=== PATIENT | female | born 1950 | race Caucasian/White ===

== ENCOUNTER 2016-10-22 04:23 | Emergency (ER) | payer OTHER ==
[~2016-10-22] VITALS: Ht 157.5 cm; Wt 63.0 kg
[2016-10-22 04:30] VITALS: Ht 157.5 cm; Wt 63.0 kg
[2016-10-22] MEDS ORDERED: KETOROLAC 30 MG INJ IV STA (06:41)
[2016-10-22] MEDS ORDERED: CLINDAMYCIN 900 MG/D5W (PMX) 50 ML IVPB SCH (07:00)
[2016-10-22] MEDS ORDERED: DEXAMETHASONE 10 MG/ML 1 ML INJ IV ONE (07:00)
[2016-10-22 08:35] VITALS: BP 119/72
[2016-10-22] MEDS ORDERED: PRED20TA PO (08:49)
[2016-10-22] MEDS ORDERED: IBUP800T25 PO (08:49)
[2016-10-22] MEDS ORDERED: HYDR-902 PO (08:49)
--- NOTE | 2016-10-22 08:53 | ERD ---
ER Documentation Chief Complaint Date/Time DATE: 10/22/16 TIME: 08:[address], with a tonsilitis sent by her specialist HPI This is a 65-year-old who is sent by her ENT for evaluation for sore throat. The patient states she has had several month history of off-and-on pharyngitis which is being worked up by her ENT. She says there is a possibility there is some type of mold exposure. The patient states that she has had a sore throat since last week and saw her ENT doctor and he put her on clindamycin. She said over the weekend her sore throat is gotten worse with more throat swelling. She says she is not having a fever no headache no nausea vomiting or difficulty breathing or swallowing secretions. She also says there is no neck swelling. She says that her ENT told her to go to the ER for evaluation ROS All systems reviewed and are negative except as per history of present illness. Medications Home Meds Active Scripts Prednisone* (Prednisone*) 20 Mg Tab, 60 MG PO DAILY for 5 Days, TAB Prov:JOHNNIE SHOEMAKER DO 10/22/16 Hydrocodone/Acetaminophen ([place] 10-325 Tablet) 1 Each Tablet, 1 TAB PO Q6H Y for PAIN, #15 TAB Prov:JOHNNIE SHOEMAKER DO 10/22/16 Ibuprofen* (Motrin*) 800 Mg Tab, 800 MG PO Q6H Y for PAIN AND OR ELEVATED TEMP, #30 TAB Prov:JOHNNIE SHOEMAKER DO 10/22/16 PMhx/Soc History of Surgery: Yes (hysterectomy, tubal ) Hx Alcohol Use: No Hx Substance Use: No Hx Tobacco Use: No Smoking Status: Never smoker FmHx Family History: No coronary disease Physical Exam Vitals Vital Signs Date Time Temp Pulse Resp B/P Pulse Ox O2 Delivery O2 Flow Rate FiO2 10/22/16 08:35 98 18 119/72 98 10/22/16 06:30 103 18 98 Room Air 10/22/16 04:30 98.4 84 18 168/100 98 Physical Exam Const: Well-developed, well-nourished Head: Atraumatic, normocephalic Eyes: Normal Conjunctiva, PERRLA, EOMI, normal sclera, no nystagmus ENT: Normal External Ears, Nose and Mouth, moist mucus membranes, both tonsils are swollen grade +3 there is no exudate there is very mild erythema no airway compromise. Neck: Full range of motion. No meningismus, no lymphadenopathy. Resp: Clear to auscultation bilaterally, no wheezing, rhonchi, rales Cardio: Regular rate and rhythm, no murmurs, S1 S2 present Abd: Soft, non tender x 4, non distended. Normal bowel sounds, no guarding or rebound, no pulsitile abdominal masses or bruits Skin: No petechiae or rashes, no ecchymosis , no maculopapular rash Back: No midline or flank tenderness Ext: No cyanosis, or edema, FROM x 4, normal inspection, neurovascularly intact x 4 Neur: Awake and alert, STR 5/5 x 4, sensation intact x 4, no focal findings, cerebellum intact Psych: Normal Mood and Affect Results 24 hrs Current Medications Medications (Trade) Dose Ordered Sig/Rex Route PRN Reason Start Time Stop Time Status Last Admin Dose Admin Dexamethasone 8 mg 8 mg ONCE ONCE IV 10/22/16 07:00 10/22/16 07:01 DC 10/22/16 07:10 Clindamycin HCl/ Dextrose (Cleocin 900 Mg/ D5W (Pmx)) 50 ml @ 50 mls/hr ONCE IVPB 10/22/16 07:00 10/22/16 07:59 DC 10/22/16 07:32 Ketorolac Tromethamine (Toradol) 30 mg ONCE STAT IV 10/22/16 06:41 10/22/16 06:45 DC 10/22/16 07:10 Procedures/MDM Patient was given intravenous clindamycin, Solu-Medrol and Toradol. After some time the patient states she feels significantly better. Patient has a prescription for clindamycin already provide her with pain control and swelling support. She will follow-up with her doctor Departure Diagnosis: Primary Impression: Pharyngitis Pharyngitis/tonsillitis etiology: unspecified etiology Qualified Code: J02.9 - Pharyngitis, unspecified etiology Condition: Stable Patient Instructions: Pharyngitis, Viral JOHNNIE SHOEMAKER DO Oct 22, 2016 08:52
[2016-10-22 09:00] VITALS: PULSE 62; RESP 18
[2016-10-22] MEDS ORDERED: CLIN-73 PO (19:05)
[2016-10-22] MEDS ORDERED: NAPR-688 PO (19:11)
== END 2016-10-22 09:01 | disposition home or self-care (01) ==
LOC: E/R 04:23
DX: J02.9 Acute pharyngitis, unspecified (principal); R40.2142 Coma scale, eyes open, spontaneous, at arrival to emergency department; R40.2252 Coma scale, best verbal response, oriented, at arrival to emergency department; R40.2362 Coma scale, best motor response, obeys commands, at arrival to emergency department
CPT/HCPCS: J1100; J1885; 96374; 96375

== ENCOUNTER 2016-10-22 16:07 | Emergency (ER) | payer OTHER ==
[~2016-10-22] VITALS: Wt 65.0 kg
[~2016-10-22 16:07] MED LIST: HYDR-902 PO; IBUP800T25 PO; PRED20TA PO
[2016-10-22 17:24] LABS: ADD SCAN DIFF NO
[2016-10-22 17:26] LABS: BASOPHILS % 0.5 % (0.0-2.0); HEMATOCRIT 40.3 % (37.0-47.0); HEMOGLOBIN 12.9 g/dl (12.0-16.0); LYMPHOCYTES # 0.9 10^3/ul (0.8-2.9); LYMPHOCYTES % 10.2 % (15.0-51.0); MEAN CORPUSCULAR HEMOGLOBIN 29.1 pg (29.0-33.0); MEAN PLATELET VOLUME 10.3 fl (7.4-10.4); MONOCYTE # 0.4 10^3/ul (0.3-0.9); MONOCYTES % 4.2 % (0.0-11.0); NEUTROPHIL # 7.1 10^3/ul (1.6-7.5); NEUTROPHILS % 80.5 % (39.0-77.0); PLATELET COUNT 377 10^3/UL (140-415); RED BLOOD COUNT 4.43 10^6/ul (4.20-5.40); RED CELL DISTRIBUTION WIDTH 13.1 % (11.5-14.5); WHITE BLOOD COUNT 8.8 10^3/ul (4.8-10.8)
[2016-10-22 17:43] LABS: ALBUMIN 4.3 g/dl (3.3-4.9); ALBUMIN/GLOBULIN RATIO 1.19; BILIRUBIN,INDIRECT 0.1 mg/dl (0-1.1); BILIRUBIN,TOTAL 0.1 mg/dl (0.2-1.3); CALCIUM 10.2 mg/dl (8.4-10.2); CREATININE 0.81 mg/dl (0.44-1.00); POTASSIUM 4.7 mmol/L (3.5-5.1); TOTAL PROTEIN 7.9 g/dl (6.1-8.1)
[2016-10-22] MEDS ORDERED: SOD CHLORIDE 0.9% 100 ML ONE (18:04)
[2016-10-22] MEDS ORDERED: IOHEXOL 300MG/ML 150 ML BTL ONE (18:04)
--- NOTE | 2016-10-22 18:38 | RADRPT ---
PROCEDURE: CT Neck with contrast CLINICAL INDICATION: Abscess. TECHNIQUE: CT of the neck was performed following the intravenous administration of 80 cc of Omnip aque-300 IV Contrast. Axial images were obtained through the neck with multiplanar reformatted image s generated from the axial acquired data. The administered radiation dose was CTDI vol = 8.56 mGy, DLP = 192.02 mGy-cm. One or more of the following dose reduction techniques were used: Automated exp osure control, Adjustment of the mA and/or kV according to patient size, or Use of iterative reconst ruction technique. COMPARISON: There are no similar studies submitted for comparison. FINDINGS: SKULL: The visualized portions of the brain are grossly unremarkable.The visualized orbits are unrem arkable. There are moderate bilateral maxillary sinus mucous retention cyst/polyps. The bilateral m astoid air cells are within normal limits. PAROTID GLANDS: Unremarkable. SUBMANDIBULAR GLANDS: Unremarkable. THYROID GLAND: The thyroid is heterogeneous with a few sub centimeter nodules. VASCULATURE: The bilateral vascular structures are patent. LYMPH NODES: There are mildly enlarged bilateral lymph nodes which are borderline in size with a lef t level IIB lymph node measuring 1.5 x 1.0 cm. Multiple small lymph nodes are identified in the nec k in levels I-V which are not pathologically enlarged or necrotic. The lymph nodes are relatively bi lateral and symmetric in distribution. AERODIGESTIVE TRACT: There is streak artifact from dental hardware limiting evaluation of the oral c avity.There is right greater left enlargement of the bilateral palatine tonsils. There are sub-cent imeter areas of nonenhancement in the left palatine tonsil (image 29 series 3) which may represent d eveloping abscesses. There is mild prominence of the bilateral lingual tonsils. There is no prever tebral abscess. No primary aerodigestive tract lesion is identified. THORAX: There is an azygos lobe which is a normal variant. OSSEOUS STRUCTURES: No destructive lytic or blastic osseous lesion is identified.There is reversal o f the cervical lordosis suggesting muscle spasm and/or degenerative changes. There are mild degenera tive changes within the cervical spine. IMPRESSION: 1. Right greater left enlargement of the bilateral palatine tonsils which may relate to inflammator y phlegmon/tonsillitis. There are sub-centimeter areas of nonenhancement in the left palatine tonsi l which may represent small developing abscesses which are not excluded. 2. No prevertebral abscess. 3. Mildly prominent lymph nodes which are borderline enlarged by imaging criteria and are nonspecif ic and may be reactive. 4. Heterogeneous thyroid with a few sub centimeter nodules. Further findings as detailed above. RPTAT: PP .Alfred Frost MD, MD Date Time Electronically viewed and signed by .Alfred Frost MD, on 10/22/2016 18:38 .F/
[2016-10-22] MEDS ORDERED: CLINDAMYCIN 600 MG/D5W (PMX) 50 ML IVPB STA (18:55)
[2016-10-22] MEDS ORDERED: KETOROLAC 30 MG INJ IV STA (19:00)
[2016-10-22] MEDS ORDERED: CLINDAMYCIN 900 MG/D5W (PMX) 50 ML IVPB STA (19:04)
[2016-10-22] MEDS ORDERED: CLIN-73 PO (19:05)
[2016-10-22] MEDS ORDERED: NAPR-688 PO (19:11)
[2016-10-22 19:59] VITALS: BP 145/93; PULSE 73; RESP 15; TEMP 98.3
--- NOTE | 2016-10-24 20:05 | ERD ---
ER Documentation Chief Complaint Date/Time DATE: 10/24/16 TIME: 19:55 Chief Complaint THROAT PAIN AND SWELLING. WAS SEEN FOR SAME TODAY. MD NEEDS CT SCAN HPI 65 year old female presenting to the emergency department complaining of a moderate severity sore throat increased with swallowing. Patient states that she was seen earlier this morning and discharged with prednisone and naproxen. Patient states that when she left this facility, she called her PCP in which they suggested for her to come back to the ER and receive a CT of the neck because her throat cultures came back positive for GAS. She denies fevers. She states she has not taken any medications yet ROS All systems reviewed and are negative except as per history of present illness. Medications Home Meds Active Scripts Naproxen* (Naproxen*) 500 Mg Tablet, 500 MG PO BID, #30 TAB Prov:JO ANN RAMOS PA-C 10/22/16 Clindamycin Hcl* (Clindamycin Hcl*) 300 Mg Capsule, 300 MG PO TID for 10 Days, CAP Prov:JO ANN RAMOS PA-C 10/22/16 Prednisone* (Prednisone*) 20 Mg Tab, 60 MG PO DAILY for 5 Days, TAB Prov:LEKKOSMALLIKASTOLOS A. DO 10/22/16 Hydrocodone/Acetaminophen ([place] 10-325 Tablet) 1 Each Tablet, 1 TAB PO Q6H Y for PAIN, #15 TAB Prov:LEKKOSMALLIKASTOLOS A. DO 10/22/16 Ibuprofen* (Motrin*) 800 Mg Tab, 800 MG PO Q6H Y for PAIN AND OR ELEVATED TEMP, #30 TAB Prov:LERASHIDOSMALLIKASTOLOS A. DO 10/22/16 Allergies Allergies: Coded Allergies: ampicillin (Verified Allergy, Intermediate, 10/22/16) PMhx/Soc History of Surgery: Yes (hysterectomy, tubal ) Hx Alcohol Use: No Hx Substance Use: No Hx Tobacco Use: No Smoking Status: Never smoker Physical Exam Vitals Vital Signs Date Time Temp Pulse Resp B/P Pulse Ox O2 Delivery O2 Flow Rate FiO2 10/22/16 19:59 98.3 73 15 145/93 97 Room Air 10/22/16 16:11 98.8 85 20 160/81 98 Physical Exam GENERAL: well-developed/well-nourished, in no apparent distress, non-toxic appearing HEAD: NC/AT, no swelling noted in frontal or maxillary areas EARS: bilateral tympanic membrane is intact without erythema or effusion NARES: nares patent THROAT: oropharynx mild erythematous without exudates, tonsil enlargement EYES: Conjunctiva normal NECK: Supple, no lymphadenopathy PULM: CTA bilaterally, no rales, rhonchi, or wheezing heard CV: Normal S1S2, RRR, good capillary refill GI: Soft, non-distended, normal bowel sounds, non-tender BACK: No midline tenderness, no masses EXT No clubbing, cyanosis, or edema NEURO: Alert and Orientated SKIN: Intact, normal turgor PSYCH: Normal mood and mentation Result Diagram: 10/22/16169910/22/161699 Results 24 hrs Laboratory Tests Test 10/22/16 17:00 White Blood Count 8.810^3/ul Red Blood Count 4.4310^6/ul Hemoglobin 12.9g/dl Hematocrit 40.3% Mean Corpuscular Volume 91.0fl Mean Corpuscular Hemoglobin 29.1pg Mean Corpuscular Hemoglobin Concent 32.0g/dl Red Cell Distribution Width 13.1% Platelet Count 50624^3/UL Mean Platelet Volume 10.3fl Neutrophils % 80.5% Lymphocytes % 10.2% Monocytes % 4.2% Eosinophils % 0.0% Basophils % 0.5% Nucleated Red Blood Cells % 0.0/100WBC Neutrophils # 7.110^3/ul Lymphocytes # 0.910^3/ul Monocytes # 0.410^3/ul Eosinophils # 0.010^3/ul Basophils # 0.010^3/ul Nucleated Red Blood Cells # 0.010^3/ul Sodium Level 146mmol/L Potassium Level 4.7mmol/L Chloride Level 99mmol/L Carbon Dioxide Level 31mmol/L Anion Gap 21 Blood Urea Nitrogen 33mg/dl Creatinine 0.81mg/dl Glucose Level 136mg/dl Calcium Level 10.2mg/dl Total Bilirubin 0.1mg/dl Direct Bilirubin 0.00mg/dl Indirect Bilirubin 0.1mg/dl Aspartate Amino Transf (AST/SGOT) 24IU/L Alanine Aminotransferase (ALT/SGPT) 46IU/L Alkaline Phosphatase 66IU/L Total Protein 7.9g/dl Albumin 4.3g/dl Globulin 3.60g/dl Albumin/Globulin Ratio 1.19 Lipase 24U/L Current Medications Medications (Trade) Dose Ordered Sig/Rex Route PRN Reason Start Time Stop Time Status Last Admin Dose Admin IV Flush 10 ml 10 ml STK-MED ONCE .ROUTE 10/22/16 18:04 10/22/16 18:05 DC 10/22/16 18:22 Sodium Chloride (NS) 100 ml @ ud STK-MED ONCE .ROUTE 10/22/16 18:04 10/22/16 18:05 DC 10/22/16 18:23 Iohexol 150 ml 150 ml STK-MED ONCE .ROUTE 10/22/16 18:04 10/22/16 18:05 DC 10/22/16 18:23 Clindamycin HCl/ Dextrose (Cleocin 600 Mg/ D5W (Pmx)) 50 ml @ 50 mls/hr ONCE STAT IVPB 10/22/16 18:55 10/22/16 19:04 DC Ketorolac Tromethamine 30 mg 30 mg ONCE STAT IV 10/22/16 19:00 10/22/16 19:01 DC 10/22/16 19:26 Clindamycin HCl/ Dextrose (Cleocin 900 Mg/ D5W (Pmx)) 50 ml @ 50 mls/hr ONCE STAT IVPB 10/22/16 19:04 10/22/16 20:03 DC 10/22/16 19:26 Procedures/MDM 65 year old female presenting to the emergency department complaining of a moderate severity sore throat increased with swallowing. Patient was evaluated and discharged earlier with prednisone. Patient states that when she left this facility, she called her PCP in which they suggested for her to come back to the ER and receive a CT of the neck because her throat cultures came back positive for GAS. She states she has not taken any medications yet. IV access established, Lab work was drawn. CBC did not show any evidence of leukocytosis or anemia. CMP did not show any evidence of renal, liver, or electrolyte abnormalities. Lipase was normal. CT neck with contrast was done and showed tonsillitis with sub-centimeter areas of nonenhancement in the left palatine tonsil which may represent small developing abscesses which are not excluded. I consulted my supervising physician Dr. Mane and the ENT specialist Dr. Bateman in which they state that she is stable to be discharged home with antibiotics. Patient was given 900mg Clindamycin and Toradol through IV. She was stable to be discharged home with clindamycin and strict precautions to return to the ER for any worsening symptoms. She understands and agrees with plan. CT neck: 1. Right greater left enlargement of the bilateral palatine tonsils which may relate to inflammatory phlegmon/tonsillitis. There are sub-centimeter areas of nonenhancement in the left palatine tonsil which may represent small developing abscesses which are not excluded. 2. No prevertebral abscess. 3. Mildly prominent lymph nodes which are borderline enlarged by imaging criteria and are nonspecific and may be reactive. 4. Heterogeneous thyroid with a few sub centimeter nodules. Departure Diagnosis: Primary Impression: Strep throat Condition: Stable Patient Instructions: Pharyngitis, Strep (Presumed) Additional Instructions: FOLLOW UP WITH YOUR PRIMARY CARE PHYSICIAN TOMORROW.Return to this facility if you are not improving as expected. Take all medicines as directed. Return to this facility if you are not improving as expected. JO ANN RAMOS PA-C Oct 24, 2016 20:04
== END 2016-10-22 19:59 | disposition home or self-care (01) ==
LOC: FTE 16:07
DX: J02.0 Streptococcal pharyngitis (principal)
CPT/HCPCS: 70491; 80053; 83690; 85025; 96374; 96375; 99285; J1885; Q9967

== ENCOUNTER 2016-10-24 02:53 | Emergency (ER) | payer OTHER ==
[~2016-10-24] VITALS: Ht 162.6 cm; Wt 65.0 kg
[~2016-10-24 02:53] MED LIST changes: +CLIN-73 PO; +NAPR-688 PO
[2016-10-24 02:56] VITALS: Ht 162.6 cm; Wt 65.0 kg
--- NOTE | 2016-10-24 04:07 | ERD ---
ER Documentation Chief Complaint Date/Time DATE: 10/24/16 TIME: 04:05 Chief Complaint sore throat x 4 days, seen yesterday here, on antibiotics day#2 HPI 65-year-old female presents here in emergency department for complaints of sore throat for 4 days, patient was seen here in emergency department 2 times, had been diagnosed to have acute bacterial pharyngitis, was given antibiotics, has been only taking the medications for the last 48 hours, patient states that tonight, she continues sore throat pain, seems to having throat discomfort and shortness of breath, she is scared that she may have closed her throat. Patient stopped taking prednisone but is continuously taking clindamycin and ibuprofen, patient has not seen ENT specialist yet. Patient does not have any fever or chills ROS All systems reviewed and are negative except as per history of present illness. Medications Home Meds Active Scripts Naproxen* (Naproxen*) 500 Mg Tablet, 500 MG PO BID, #30 TAB Prov:JO ANN RAMOS PA-C 10/22/16 Clindamycin Hcl* (Clindamycin Hcl*) 300 Mg Capsule, 300 MG PO TID for 10 Days, CAP Prov:JO ANN RAMOS PA-C 10/22/16 Prednisone* (Prednisone*) 20 Mg Tab, 60 MG PO DAILY for 5 Days, TAB Prov:JOHNNIE SHOEMAKER DO 10/22/16 Hydrocodone/Acetaminophen ([place] 10-325 Tablet) 1 Each Tablet, 1 TAB PO Q6H Y for PAIN, #15 TAB Prov:JOHNNIE SHOEMAKER DO 10/22/16 Ibuprofen* (Motrin*) 800 Mg Tab, 800 MG PO Q6H Y for PAIN AND OR ELEVATED TEMP, #30 TAB Prov:MALLIKA SHOEMAKERSTCRSYTALS A. DO 10/22/16 Allergies Allergies: Coded Allergies: ampicillin (Verified Allergy, Intermediate, 10/22/16) PMhx/Soc History of Surgery: Yes (hysterectomy, tubal ) Hx Alcohol Use: No Hx Substance Use: No Hx Tobacco Use: No Smoking Status: Never smoker FmHx Family History: No coronary disease, No diabetes, No other Physical Exam Vitals Vital Signs Date Time Temp Pulse Resp B/P Pulse Ox O2 Delivery O2 Flow Rate FiO2 10/24/16 02:56 98.2 79 20 170/80 98 Physical Exam GENERAL: The patient is well developed and appropriate for usual state of health, in no apparent distress. HEENT: Atraumatic. Ears: Normal tympanic membrane, no erythema or bulging. No ear canal swelling. No ear discharge. Nose: normal nasal turbinates, no erythema or swelling. Normal nasal discharge. Throat: oropharynx erythematous, no oral airway obstruction noted, no visualized peritonsillar abscess.. No lymphadenopathy. CHEST: Clear to auscultation bilaterally. There are no rales, wheezes or rhonchi. HEART: Regular rate and rhythm. No murmurs, clicks, rubs or gallops. No S3 or S4. ABDOMEN: Soft, nontender and nondistended. Good bowel sounds. No rebound or guarding. No gross peritonitis. No gross organomegaly or masses. No Chery sign or McBurney point tenderness. BACK: No midline or flank tenderness. EXTREMITIES: Equal pulses bilaterally. There is no peripheral clubbing, cyanosis or edema. No focal swelling or erythema. Full range of motion. Grossly neurovascularly intact. NEURO: Alert and oriented. Cranial nerves 2-12 intact. Motor strength in all 4 extremities with 5/5 strength. Sensation grossly intact. Normal speech and gait. SKIN: There is no apparent rash or petechia. The skin is warm and dry. HEMATOLOGIC AND LYMPHATIC: There is no evidence of excessive bruising or lymphedema. No gross cervical, axillary, or inguinal lymphadenopathy. Results 24 hrs PROCEDURE: CT Neck with contrast CLINICAL INDICATION: Abscess. TECHNIQUE: CT of the neck was performed following the intravenous administration of 80 cc of Omnipaque-300 IV Contrast. Axial images were obtained through the neck with multiplanar reformatted images generated from the axial acquired data. The administered radiation dose was CTDI vol = 8.56 mGy, DLP = 192.02 mGy-cm. One or more of the following dose reduction techniques were used: Automated exposure control, Adjustment of the mA and/or kV according to patient size, or Use of iterative reconstruction technique. COMPARISON: There are no similar studies submitted for comparison. FINDINGS: SKULL: The visualized portions of the brain are grossly unremarkable.The visualized orbits are unremarkable. There are moderate bilateral maxillary sinus mucous retention cyst/polyps. The bilateral mastoid air cells are within normal limits. PAROTID GLANDS: Unremarkable. SUBMANDIBULAR GLANDS: Unremarkable. THYROID GLAND: The thyroid is heterogeneous with a few sub centimeter nodules. VASCULATURE: The bilateral vascular structures are patent. LYMPH NODES: There are mildly enlarged bilateral lymph nodes which are borderline in size with a left level IIB lymph node measuring 1.5 x 1.0 cm. Multiple small lymph nodes are identified in the neck in levels I-V which are not pathologically enlarged or necrotic. The lymph nodes are relatively bilateral and symmetric in distribution. AERODIGESTIVE TRACT: There is streak artifact from dental hardware limiting evaluation of the oral cavity.There is right greater left enlargement of the bilateral palatine tonsils. There are sub-centimeter areas of nonenhancement in the left palatine tonsil (image 29 series 3) which may represent developing abscesses. There is mild prominence of the bilateral lingual tonsils. There is no prevertebral abscess. No primary aerodigestive tract lesion is identified. THORAX: There is an azygos lobe which is a normal variant. OSSEOUS STRUCTURES: No destructive lytic or blastic osseous lesion is identified.There is reversal of the cervical lordosis suggesting muscle spasm and/or degenerative changes. There are mild degenerative changes within the cervical spine. IMPRESSION: 1. Right greater left enlargement of the bilateral palatine tonsils which may relate to inflammatory phlegmon/tonsillitis. There are sub-centimeter areas of nonenhancement in the left palatine tonsil which may represent small developing abscesses which are not excluded. 2. No prevertebral abscess. 3. Mildly prominent lymph nodes which are borderline enlarged by imaging criteria and are nonspecific and may be reactive. 4. Heterogeneous thyroid with a few sub centimeter nodules. Further findings as detailed above. RPTAT: PP .Alfred Frost MD, MD Date Time Electronically viewed and signed by .Alfred Frost MD, MD on 10/22/2016 18:38 .F/ CC: JO ANN RAMOS PA-C Procedures/MDM Medical decision making: Patient symptoms is likely consistent with acute bacterial pharyngitis, most likely strep throat. Low suspicion for peritonsillar abscess, mononucleosis, no symptoms of epiglottitis, laryngitis. No oral airway obstruction noted. No symptoms of sepsis at this time. Patient appears well and is hemodynamically stable. Patient advised to continue taking prednisone, clindamycin and ibuprofen, is advised to follow-up with primary care doctor in 2-3 days for reevaluation of symptoms. Patient is advised to do salt water gargles. Patient is advised to return to emergency department for worsening symptoms. ENT specialist in the morning. Disposition: Home. Stable. Disclaimer: Inadvertent spelling and grammatical errors are likely due to EHR/ dictation software use and do not reflect on the overall quality of patient care. Also, please note that the electronic time recorded on this note does not necessarily reflect the actual time of the patient encounter. Departure Diagnosis: Primary Impression: Acute bacterial pharyngitis Condition: Stable Patient Instructions: Pharyngitis, Strep (Presumed) Additional Instructions: continue antibiotics, prednisone and ibuprofen, see ENT specialist in the morning CAMERON BRODY NP Oct 24, 2016 04:07
[2016-10-24 04:34] VITALS: PULSE 70; RESP 15; TEMP 97.8
== END 2016-10-24 04:03 | disposition home or self-care (01) ==
LOC: FTE 02:53
DX: J02.9 Acute pharyngitis, unspecified (principal)
CPT/HCPCS: 99282

== ENCOUNTER 2016-11-20 08:38 | Emergency (ER) | payer OTHER ==
[~2016-11-20] VITALS: Ht 157.5 cm; Wt 61.0 kg
[2016-11-20 08:42] VITALS: Ht 157.5 cm; Wt 61.0 kg
[2016-11-20] MEDS ORDERED: ONDANSETRON (ODT) 4 MG TAB ODT STA (08:58)
[2016-11-20] MEDS ORDERED: HYDROCODONE/APAP (5/325) TAB PO ONE (09:00)
--- NOTE | 2016-11-20 09:08 | ERD ---
ER Documentation Chief Complaint Date/Time DATE: 11/20/16 TIME: 09:02 Chief Complaint pt bib self with c/o sore throat x a few months, been on many antibx, HPI 66-year-old female presents emergency department for complaints of sore throat 2 months. Patient states that she was initially seen and evaluated by this ER 2 months ago and diagnosed with strep throat, given antibiotics and instructed to return if symptoms worsen. At that time a CT scan with contrast was performed to rule out a peritonsillar abscess. The CT scan performed on 10-22-16 , was negative for acute abscess or fluid collection. Patient states her symptoms did worsen she returned and was instructed to follow-up with an research management associate. Patient states she saw Dr. corrigan, ENT specialist, 2 months ago, who diagnosed her with a peritonsillar abscess. She was provided with oral clindamycin and given return precautions. Patient states that since that time she has returned to an urgent care 2 times as her symptoms have not improved. She denies any fever or chills reports an ongoing nonradiating 7 out of 10 throat pain worse with swallowing. She denies cough, congestion, runny nose, headache, abdominal pain, dysuria, vomiting, nausea, or diarrhea. She states she was seen by urgent care today who instructed her to report immediately to the emergency department for a repeat CT scan. ROS All systems reviewed and are negative except as per history of present illness. Medications Home Meds Active Scripts Prednisone* (Prednisone*) 20 Mg Tab, 40 MG PO DAILY for 4 Days, TAB Prov:MICHELLE SKAGGS PA-C 11/20/16 Naproxen* (Naprosyn*) 500 Mg Tablet, 500 MG PO BID Y for PAIN AND/OR INFLAMMATION, #30 TAB Prov:MICHELLE SKAGGS PA-C 11/20/16 Naproxen* (Naproxen*) 500 Mg Tablet, 500 MG PO BID, #30 TAB Prov:JO ANN RAMOS PA-C 10/22/16 Clindamycin Hcl* (Clindamycin Hcl*) 300 Mg Capsule, 300 MG PO TID for 10 Days, CAP Prov:JO ANN RAMOS PA-C 10/22/16 Prednisone* (Prednisone*) 20 Mg Tab, 60 MG PO DAILY for 5 Days, TAB Prov:JOHNNIE SHOEMAKER DO 10/22/16 Hydrocodone/Acetaminophen (Morris 10-325 Tablet) 1 Each Tablet, 1 TAB PO Q6H Y for PAIN, #15 TAB Prov:JOHNNIE SHOEMAKER DO 10/22/16 Ibuprofen* (Motrin*) 800 Mg Tab, 800 MG PO Q6H Y for PAIN AND OR ELEVATED TEMP, #30 TAB Prov:JOHNNIE SHOEMAKER DO 10/22/16 Allergies Allergies: Coded Allergies: ampicillin (Verified Allergy, Intermediate, 10/22/16) PMhx/Soc History of Surgery: Yes (hysterectomy, tubal ) Hx Alcohol Use: No Hx Substance Use: No Hx Tobacco Use: No Physical Exam Vitals Vital Signs Date Time Temp Pulse Resp B/P Pulse Ox O2 Delivery O2 Flow Rate FiO2 11/20/16 08:42 98.3 69 18 170/62 97 Physical Exam Const: Well-developed, well-nourished, nontoxic-appearing, in no acute distress Head: Atraumatic Eyes: Normal Conjunctiva ENT: Normal External Ears, Nose and Mouth. Patient speaking in full sentences. Normal phonation. Posterior pharynx erythematous with mild bilateral tonsillar swelling. No exudates. No obstruction of the airway. Uvula midline. Patient moving air well. Neck: Full range of motion..~ No meningismus. Resp: Clear to auscultation bilaterally. No stridor, wheezes, rhonchi, rales Cardio: Regular rate and rhythm, no murmurs Abd: Soft, non tender, non distended. Normal bowel sounds Skin: No petechiae or rashes Back: No midline or flank tenderness Ext: No cyanosis, or edema Neur: Awake and alert Psych: Normal Mood and Affect Result Diagram: 11/20/1690411/20/16904 Results 24 hrs Laboratory Tests Test 11/20/16 09:05 White Blood Count 6.510^3/ul Red Blood Count 4.5910^6/ul Hemoglobin 13.3g/dl Hematocrit 40.7% Mean Corpuscular Volume 88.7fl Mean Corpuscular Hemoglobin 29.0pg Mean Corpuscular Hemoglobin Concent 32.7g/dl Red Cell Distribution Width 13.1% Platelet Count 89010^3/UL Mean Platelet Volume 9.8fl Neutrophils % 63.2% Lymphocytes % 26.0% Monocytes % 7.7% Eosinophils % 2.0% Basophils % 0.8% Nucleated Red Blood Cells % 0.0/100WBC Neutrophils # (Manual) 4.110^3/ul Lymphocytes # 1.710^3/ul Monocytes # 0.510^3/ul Eosinophils # 0.110^3/ul Basophils # 0.110^3/ul Nucleated Red Blood Cells # 0.010^3/ul Sodium Level 140mmol/L Potassium Level 3.8mmol/L Chloride Level 102mmol/L Carbon Dioxide Level 28mmol/L Anion Gap 14 Blood Urea Nitrogen 23mg/dl Creatinine 0.82mg/dl Glucose Level 106mg/dl Calcium Level 9.5mg/dl Total Bilirubin 0.3mg/dl Direct Bilirubin 0.00mg/dl Indirect Bilirubin 0.3mg/dl Aspartate Amino Transf (AST/SGOT) 21IU/L Alanine Aminotransferase (ALT/SGPT) 30IU/L Alkaline Phosphatase 56IU/L Total Protein 7.6g/dl Albumin 4.3g/dl Globulin 3.30g/dl Albumin/Globulin Ratio 1.30 Current Medications Medications (Trade) Dose Ordered Sig/Rex Route PRN Reason Start Time Stop Time Status Last Admin Dose Admin Acetaminophen/ Hydrocodone Bitart (Morris (5/325)) 1 tab ONCE ONCE PO 11/20/16 09:00 11/20/16 09:01 DC 11/20/16 09:14 Ondansetron HCl (Zofran Odt) 4 mg ONCE STAT ODT 11/20/16 08:58 11/20/16 09:00 DC 11/20/16 09:14 IV Flush 10 ml 10 ml STK-MED ONCE .ROUTE 11/20/16 10:25 11/20/16 10:26 DC 11/20/16 10:39 Sodium Chloride (NS) 100 ml @ ud STK-MED ONCE .ROUTE 11/20/16 10:25 11/20/16 10:26 DC 11/20/16 10:39 Iohexol (Omnipaque 300mg/ ml) 150 ml STK-MED ONCE .ROUTE 11/20/16 10:25 11/20/16 10:26 DC 11/20/16 10:40 Dexamethasone (Decadron) 10 mg ONCE ONCE IM 11/20/16 11:30 11/20/16 11:31 Procedures/MDM PROCEDURE: CT Neck with contrast. CLINICAL INDICATION: 66-year-old female with sore throat for several months, status post antibiotics. TECHNIQUE: The study was performed utilizing a multislice multidetector CT scanner. Direct spiral 1 mm axial sections were obtained through the neck with the use of with the use of intravenous contrast material. 90 cc of Omnipaque- 300 was utilized without complication. Coronal and sagittal as well as maximal intensity projection reformations were obtained. The images were reviewed on a PACS workstation. RADIATION DOSE: CTDIvol: 9.3 mGy DLP: 251.3 mGy-cm COMPARISON: 10/22/2016 FINDINGS: There is redemonstration of prominent enlargement/heterogeneous enhancement of the bilateral palatine tonsils, with enhancement extending inferiorly to the level of the lingual tonsils as well as along the uvula. No definite hypo enhancing fluid collections are seen. The previously visualized hypoenhancing fluid collections seen in the left palatine tonsil are no longer visualized. The nasopharynx, oropharynx and hypopharynx are normal in appearance. There is no tongue base mass. The larynx is normal in appearance. The parotid, submandibular and thyroid glands are normal in appearance. No enlarged cervical lymph nodes are seen. The vascular structures are normal. The paranasal sinuses and orbits are normal. Limited visualization of the intracranial contents is unremarkable. There are mild degenerative changes of the cervical spine. The lung apices are normal in appearance. IMPRESSION: 1. No significant interval change compared to 10/22/2016. Persistent moderate enlargement/enhancement of the bilateral palatine and lingual tonsils, compatible with tonsillitis. No hypoenhancing fluid collections are seen to suggest abscess formation at this time. 2. No evidence of mass lesion, lymphadenopathy or abnormal fluid collection. RPTAT: HGAS .Bret Cardona MD, Date Time Electronically viewed and signed by .Bret Cardona MD, MD on 11/20/2016 11: 01 .S/ CC: MICHELLE SKAGGS PA-C This is a 66-year-old female who presents for ongoing throat pain 2 months. Patient has been seen multiple times by various providers including an ENT specialist, Dr. Landa, who diagnosed her with a peritonsillar abscess which was treated with oral clindamycin. Patient states that her symptoms have not worsened but have not significantly improved. She was seen by an urgent care today who instructed her to report immediately to the emergency department for repeat CT scan with contrast to rule out abscess. Patient is well-appearing, nontoxic, and in no acute distress upon arrival. She is able to speak in full sentences with normal speech. Physical exam without evidence of any airway obstruction or peritonsillar abscess. Vital signs reviewed. Patient afebrile, not tachycardic, and non-hypoxic upon arrival. Patient's blood pressure was elevated (>120/80) but appears stable without evidence of hypertension emergency or urgency. The patient was counseled about the risks of hypertension and urged to pursue outpatient monitoring and therapy within a week with their primary care physician. CBC showed no evidence of systemic infection or severe anemia. CMP showed no evidence of electrolyte abnormalities, severe acidosis, alkalosis , renal failure, or liver disease. Patient received a dose of pain medication while in the emergency department and reports improvement of symptoms. Repeat soft tissue CT scan without evidence of any significant changes compared to her prior scan on 10-22-2016. She was found to have persistent, moderate enlargement of the bilateral palatine and lingual tonsils, consistent with tonsillitis. There was no evidence of fluid collections or abscess formations noted. There were no mass lesions lymphadenopathy or other abnormal findings. All CT and lab results were provided to the patient. Patient's history, physical exam consistent with persistent tonsillitis. I have low suspicion for severe bacterial infection, peritonsillar abscess, or sepsis as patient is well-appearing, nontoxic, afebrile, and without any laboratory abnormality. Patient will receive steroids and naproxen for symptomatic control. Additionally I have recommended rest, fluids, and humidifier for symptomatic control. Patient has been on an extended course of clindamycin and therefore do not believe additional antibiotics are indicated at this time. Patient instructed to follow-up with ENT specialist for proper ongoing management of her throat pain. Based on patient's history of present illness and physical examination the decision was made to discharge. The patient was re-evaluated after ED treatment and stabilizing measures, and symptoms have improved. There is no evidence of life threatening injuries or illnesses at this time. On re-examination, patient resting in no distress, stable vital signs, reports feeling better and safe for discharge with outpatient follow up with PMD in 1-2 days for a referral back to and his artery, ENT specialist. Patient given return precautions. Departure Diagnosis: Primary Impression: Acute recurrent tonsillitis Additional Impression: Sore throat MICHELLE SKAGGS PA-C Nov 20, 2016 09:08
[2016-11-20 09:15] LABS: BASOPHIL # 0.1 10^3/ul (0.0-0.1); BASOPHILS % 0.8 % (0.0-2.0); EOSINOPHILS # 0.1 10^3/ul (0.0-0.5); HEMATOCRIT 40.7 % (37.0-47.0); HEMOGLOBIN 13.3 g/dl (12.0-16.0); LYMPHOCYTES # 1.7 10^3/ul (0.8-2.9); MEAN CORPUSCULAR HGB CONC 32.7 g/dl (32.0-37.0); MEAN CORPUSCULAR VOLUME 88.7 fl (82.0-101.0); MEAN PLATELET VOLUME 9.8 fl (7.4-10.4); MONOCYTE # 0.5 10^3/ul (0.3-0.9); MONOCYTES % 7.7 % (0.0-11.0); NEUTROPHILS % 63.2 % (39.0-77.0); PLATELET COUNT 319 10^3/UL (140-415); RED BLOOD COUNT 4.59 10^6/ul (4.20-5.40); RED CELL DISTRIBUTION WIDTH 13.1 % (11.5-14.5); WHITE BLOOD COUNT 6.5 10^3/ul (4.8-10.8)
[2016-11-20 09:40] LABS: ALBUMIN 4.3 g/dl (3.3-4.9); ALBUMIN/GLOBULIN RATIO 1.3; BILIRUBIN,INDIRECT 0.3 mg/dl (0-1.1); BILIRUBIN,TOTAL 0.3 mg/dl (0.2-1.3); CALCIUM 9.5 mg/dl (8.4-10.2); CREATININE 0.82 mg/dl (0.44-1.00); POTASSIUM 3.8 mmol/L (3.5-5.1); TOTAL PROTEIN 7.6 g/dl (6.1-8.1)
[2016-11-20] MEDS ORDERED: SOD CHLORIDE 0.9% 100 ML ONE (10:25)
[2016-11-20] MEDS ORDERED: IOHEXOL 300MG/ML 150 ML BTL ONE (10:25)
--- NOTE | 2016-11-20 11:01 | RADRPT ---
PROCEDURE: CT Neck with contrast. CLINICAL INDICATION: 66-year-old female with sore throat for several months, status post antibioti cs. TECHNIQUE: The study was performed utilizing a multislice multidetector CT scanner. Direct spiral 1 mm axial sections were obtained through the neck with the use of with the use of intravenous contr ast material. 90 cc of Omnipaque-300 was utilized without complication. Coronal and sagittal as we ll as maximal intensity projection reformations were obtained. The images were reviewed on a PACS [employer]. RADIATION DOSE: CTDIvol: 9.3 mGyDLP: 251.3 mGy-cm COMPARISON: 10/22/2016 FINDINGS: There is redemonstration of prominent enlargement/heterogeneous enhancement of the bilateral palatin e tonsils, with enhancement extending inferiorly to the level of the lingual tonsils as well as tam g the uvula. No definite hypo enhancing fluid collections are seen. The previously visualized hypo enhancing fluid collections seen in the left palatine tonsil are no longer visualized. The nasophar ynx, oropharynx and hypopharynx are normal in appearance. There is no tongue base mass. The larynx is normal in appearance. The parotid, submandibular and thyroid glands are normal in appearance. No enlarged cervical lymph nodes are seen. The vascular structures are normal. The paranasal sinus es and orbits are normal. Limited visualization of the intracranial contents is unremarkable. Ther e are mild degenerative changes of the cervical spine. The lung apices are normal in appearance. IMPRESSION: 1. No significant interval change compared to 10/22/2016. Persistent moderate enlargement/enhancem ent of the bilateral palatine and lingual tonsils, compatible with tonsillitis. No hypoenhancing fl uid collections are seen to suggest abscess formation at this time. 2. No evidence of mass lesion, lymphadenopathy or abnormal fluid collection. RPTAT: HGAS .Bret Cardona MD, Date Time Electronically viewed and signed by .Bret Cardona MD, on 11/20/2016 11:01 .S/
[2016-11-20] MEDS ORDERED: PRED20TA PO (11:14)
[2016-11-20] MEDS ORDERED: NAPR-260 PO (11:14)
[2016-11-20] MEDS ORDERED: DEXAMETHASONE 10 MG/ML 1 ML INJ IM ONE (11:30)
== END 2016-11-20 11:34 | disposition home or self-care (01) ==
LOC: FTE 08:38
DX: J03.91 Acute recurrent tonsillitis, unspecified (principal)
CPT/HCPCS: 70491; 80053; 85025; 96372; 99285; J1100; Q9967